=== PATIENT | female | born 1960 | race African-American/Black ===

== ENCOUNTER 2016-08-19 10:45 | Emergency (ER) | payer MEDICAID, OTHER ==
[~2016-08-19] VITALS: Ht 167.6 cm; Wt 70.0 kg
[2016-08-19] MEDS ORDERED: ONDANSETRON 4MG ODT PO ONE (12:00)
[2016-08-19 14:06] VITALS: BP 146/89
== END 2016-08-19 14:08 | disposition home or self-care (01) ==
LOC: ER 10:52
DX: M25.551 Pain in right hip (principal); R11.0 Nausea
CPT/HCPCS: 73502; 99284; Q0162